=== PATIENT | male | born 1975 | race Caucasian/White ===

== ENCOUNTER 2016-11-08 21:44 | Emergency (ER) | payer BC ==
[~2016-11-08] VITALS: Ht 188 cm; Wt 108.9 kg
[2016-11-08 22:21] VITALS: BP 140/74
[2016-11-08] MEDS ORDERED: GABAPENTIN300 MG ORAL (22:21)
[2016-11-08] MEDS ORDERED: Dexamethasone 4mg/ml vial IM ONE (22:30)
[2016-11-08] MEDS ORDERED: Ketorolac 60mg Inj IM ONE (22:30)
[2016-11-08 22:50] VITALS: BP 140/74
--- NOTE | 2016-11-10 06:37 | Emergency Room Report ---
History of Present Illness General Chief Complaint: Pain Source: Patient Present Illness HPI Patient is a 41-year-old male who presented after increased pain to his low back radiating to his left leg. Patient had previous history of lumbar disc disease. Patient reported pain to his great toe. Patient reported having some tingling sensation. He stated pain was worse with movement. He denied any fever. He had not been vomiting. Pain a gradual onset. Patient had a previous MRI with the minimal disc bulging seen. Allergies: Coded Allergies: No Known Allergies (Unverified , 11/08/16) Patient History Past Medical History: see triage record Reviewed Nursing Documentation: PMH: Agreed, PSxH: Agreed Review of Systems All Other Systems: negative except mentioned in HPI Physical Exam Vital Signs Date Time Temp Pulse Resp B/P Pulse Ox O2 Delivery O2 Flow Rate FiO2 11/08/16 21:58 98.1 104 16 140/74 96 Room Air General Appearance: well appearing, no apparent distress, alert, GCS 15 Head: normocephalic, atraumatic ENT: hearing grossly normal, normal voice Neck: full range of motion, supple Respiratory: no respiratory distress, speaking full sentences Cardiovascular #1: normal inspection, normal peripheral pulses, regular rate, rhythm, no edema Gastrointestinal: normal inspection, normal bowel sounds, non tender, soft Musculoskeletal: normal inspection, back normal, no calf tenderness, decreased range of mation Neurologic: normal inspection, alert, oriented x3, responsive, 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 Differential diagnosis included but was not limited to herniated disc, cauda equina syndrome, abdominal aortic aneurysm, perforated ulcer, spinal epidural abscess, spinal stenosis, lumbar fracture, metastatic lesion, pyelonephritis. The patient was noted to have previous imaging. Patient does not appear to have evidence of midline spinous tenderness. The toes or downgoing bilaterally with plantar response. Patient having normal urinary function. The patient is advised to follow up with primary care doctor in 1-2 days. Patient is advised to return if any worsening condition or if any changes in status that are concerning. Last Vital Signs Date Time Temp Pulse Resp B/P Pulse Ox O2 Delivery O2 Flow Rate FiO2 11/08/16 22:50 100 16 140/74 96 Room Air 11/08/16 22:21 98.1 Status: improved Disposition: HOME, SELF-CARE Condition: Stable Scripts Gabapentin* (GABAPENTIN*) 300 Mg Capsule 300 MG ORAL THREE TIMES A DAY, #30 CAP 0 Refills Prov: Otoniel Bower 11/08/16 Referrals: NOT CHOSEN IPA/MD,REFERRING (PCP) Patient Instructions: Sciatica Otoniel Bower Nov 10, 2016 06:37
== END 2016-11-08 22:50 | disposition home or self-care (01) ==
LOC: EMR 22:50
DX: M54.30 Sciatica, unspecified side (principal)
CPT/HCPCS: 96372; 99283; J1100

== ENCOUNTER 2018-09-08 20:20 | Emergency (ER) | payer SELFPAY ==
[~2018-09-08] VITALS: Ht 188 cm; Wt 108.9 kg
[~2018-09-08 20:20] MED LIST: GABAPENTIN300 MG ORAL
[2018-09-08 20:26] VITALS: BP 134/82
[2018-09-08 20:30] VITALS: BP 134/82
--- NOTE | 2018-09-08 20:30 | NUR ---
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 AO4. NAD. VSS.
[2018-09-08] MEDS ORDERED: Bupivacaine 0.5% Inj 30 ml vial INJ ONE (20:45)
[2018-09-08] MEDS ORDERED: Tetanus/Diptheria/Pertussis Vaccine 0.5ml Syr IM ONE (20:45)
[2018-09-08] MEDS ORDERED: IBUPROFEN600 MG ORAL (21:03)
[2018-09-08] MEDS ORDERED: CEPHALEXIN500 MG ORAL (21:03)
--- NOTE | 2018-09-08 21:07 | Emergency Room Report ---
History of Present Illness General Chief Complaint: Laceration Source: Patient Present Illness HPI Patient is a 43-year-old [id number] male who presented after left thumb laceration. Patient reports having injury approximately 30 minutes prior to arrival. He denies any numbness or weakness to his thumb. He denies other locations of pain. He denies past medical history. He had not had a recent tetanus vaccine. 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 Allergies: Coded Allergies: No Known Allergies (Unverified , 11/08/16) Patient History Past Medical History: see triage record Reviewed Nursing Documentation: PMH: Agreed; PSxH: Agreed Nursing Documentation-PMH Past Medical History: No Stated History Review of Systems All Other Systems: negative except mentioned in HPI Physical Exam Vital Signs Date Time Temp Pulse Resp B/P (MAP) Pulse Ox O2 Delivery O2 Flow Rate FiO2 09/08/18 20:26 98.1 65 16 134/82 97 Room Air General Appearance: well appearing, no apparent distress, alert, GCS 15 Head: normocephalic, atraumatic ENT: hearing grossly normal, normal voice Neck: full range of motion, supple Respiratory: no respiratory distress, speaking full sentences Musculoskeletal: normal inspection, back normal, digits/nails normal, gait/ station normal Neurologic: normal inspection, alert, oriented x3, normal gait Psychiatric: mood/affect normal Skin: no rash, laceration - 2 cm laceration Procedures Laceration/Wound Repair Laceration/Wound Repair : Consent: Emergent Wound Location: upper extremity Wound's Depth, Shape: superficial Wound Length (cm): 2 Wound Explored: clean Irrigated w/ Saline (ccs): 50 Betadine Prep?: Yes Anesthesia: 0.5% Sensorcaine Volume Anesthetic (ccs): 2 Wound Repaired With: sutures Suture Size/Type: 4:0 Number of Sutures: 4 Layer Closure?: No Patient Tolerated: Well Complications: None Medical Decision Making Diagnostic Impression: Primary Impression: Laceration ER Course Patient presented for laceration. Differential diagnoses included foreign body , nerve injury, arterial injury among others. Patient has a benign exam and does not appear to require any further imaging or laboratory testing at this time. Patient had a simple laceration which is closed with nylon suture. Patient tolerated well. Patient was advised wound care. He was advised to have wound rechecked in 3 days and have sutures removed in 2 weeks. Last Vital Signs Date Time Temp Pulse Resp B/P (MAP) Pulse Ox O2 Delivery O2 Flow Rate FiO2 09/08/18 20:26 98.1 65 16 134/82 97 Room Air Status: improved Disposition: HOME, SELF-CARE Condition: Stable Scripts Ibuprofen* (MOTRIN*) 600 Mg Tablet 600 MG ORAL Q8H PRN for For Pain, #30 TAB 0 Refills Prov: Otoniel Bower MD 09/08/18 Cephalexin* (KEFLEX*) 500 Mg Capsule 500 MG ORAL EVERY 6 HOURS, #28 CAP Prov: Otoniel Bower MD 09/08/18 Patient Instructions: Laceration Care, Adult Otoniel Bower MD Sep 08, 2018 21:07
[2018-09-08] MEDS ORDERED: Bacitracin Oint UD TOPIC ONE (21:15)
--- NOTE | 2018-09-08 21:15 | NUR ---
ED Nurse Note: Patient cleared for discharge per ERMD. AO4 NAD. VSS. Patient given prescriptions and discharge instructions; verbalized understanding. ID band removed. Patient ambulated steady with all personal belongings.
== END 2018-09-08 21:15 | disposition home or self-care (01) ==
LOC: EMR 21:00
DX: S61.012A Laceration without foreign body of left thumb without damage to nail, initial encounter (principal); W26.0XXA Contact with knife, initial encounter; Y92.89 Other specified places as the place of occurrence of the external cause; Z23 Encounter for immunization
CPT/HCPCS: 12001; 90471; 90715; 99283; J3490